=== PATIENT | male | born 1990 | race African-American/Black ===

== ENCOUNTER 2016-03-05 13:53 | Emergency (ER) | payer OTHER ==
--- NOTE | 2016-03-05 15:49 | REP ---
Clinical: Right testicular pain and swelling. Technique: Real time lovett scale and color Doppler evaluation using linear high frequency transducer. Findings: The bilateral testicles demonstrate few scattered punctate calcifications and are otherwise normal in contour, size, echogenicity, and vascularity. There is no evidence for testicular mass lesion, fracture / inflammatory process, or torsion. The epididymides are relatively normal demonstrating 4.5 mm right epididymal head cyst and 4.4 mm and 3.5 mm left epididymal cysts. No significant hydroceles are identified. Mild left-sided varicoceles are suggested measuring up to approximately 2.8 mm maximal diameter. Right testicle measures 4.9 x 2.1 x 3.0 cm. Left testicle measures 4.9 x 2.3 x 3.2 cm. Impression: Few scattered testicular calcifications along with small bilateral epididymal head cysts and minimal left varicoceles. No evidence for torsion, mass lesion or acute infectious/inflammatory process. Signed by Abdifatah Painter MD 03/05/2016 03:41 P
[2016-03-05] MEDS ORDERED: valACYclovir HCL 500 MG TAB As Ordered ONE (16:05)
--- NOTE | 2016-03-05 16:13 | EDDOCDS ---
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 tender to touch. denies penile discharge. looks like rash on outside of testicle. Adult Sepsis Screening: The patient does not have new or worsening altered mentation. Patient's respiratory rate is less than 22. Systolic blood pressure is greater than 100. Patient has a qSOFA score of 0- Negative Sepsis Screen. Suicide/Homicide risk assessment- the patient denies having any suicidal and/or homicidal ideations and does not present with any other emotional, behavioral or mental health complaints. Status: The patient is an active duty food service sales representatives. Transition of care: patient was not received from another setting of care. 14:01 Acuity: JUAQUIN Level 4 bcj 14:01 Method Of Arrival: Walkin/Carried/Asstd bcj Triage Assessment: 14:04 General: Appears in no apparent distress, comfortable, Behavior is cooperative. Pain: bcj Location: pelvis Pain currently is 6 out of 10 on a pain scale. HIV screening NA for this visit Offered previously. Historical: - Allergies: no known allergies; - Home Meds: 1. none - PMHx: none; - PSHx: Appendectomy; PRK Eye Surgery; scope left knee; - Social history: Smoking status: Patient states was never smoker of tobacco. No barriers to communication noted, The patient speaks fluent Pashto, Speaks appropriately for age. - Family history: Not pertinent. - : The pt / caregiver states he / she is not on anticoagulants. Home medication list is obtained from the patient. - Exposure Risk Screening:: None identified. Screenin:10 Screening information is obtained from the patient. Fall risk: No risks identified. mlb1 Assistance ADL's: requires no assistance with activities of daily living. Abuse/DV Screen: The patient / caregiver reports he/she is: not in a situation that causes fear, pain or injury. Nutritional screening: No deficits noted. Advance Directives: Currently, there is no health care proxy. home support is adequate. Assessment: 16:10 General: Appears in no apparent distress, comfortable, Behavior is appropriate for age, mlb1 cooperative. Pain: Location: pelvis Pain currently is 6 out of 10 on a pain scale. Respiratory: No deficits noted. Vital Signs: 13:56 BP 163 / 80; Pulse 79; Resp 18; Temp 98.9; Pulse Ox 100% ; Weight 98.88 kg; Height 5 elp ft. 11 in. (180.34 cm); Pain 6/10; 16:06 BP 141 / 80 RA Sitting (auto/reg); Pulse 70; Resp 18; Temp 98.3(O); Pulse Ox 97% on rs6 R/A; Pain 0/10; 13:56 Body Mass Index 30.40 (98.88 kg, 180.34 cm) elp 16:06 pain is 6/10 with movement. Pain is 0/10 while sitting rs6 Vitals: 13:56 Log In Time: March 05, 2016 at 13:54. el ED Course: 13:55 Patient visited by Danica Reed PCA. elp 13:55 Patient moved to Waiting elp 13:56 [facility], John German is Private Physician. elp 13:56 Patient visited by Danica Reed PCA. elp 13:56 Patient moved to Pre RCE elp 14:03 Triage Initiated bcj 14:05 Patient visited by Jah Smith RN. bc 15:02 Patient moved to Ultrasound hgl 15:21 [facility] jk8 15:21 Cecelia Charles MD is Attending Physician. jk8 15:21 Patient moved to Triage 3 mlb1 15:22 Patient moved to TR7 mlb1 15:23 Patient moved to Pre RCE rs6 15:30 Patient moved to Triage 2 rs6 15:33 [facility]oto [facility] jk8 15:33 Cecelia Charles MD is Attending Physician. jk8 15:33 Patient visited by Guy Soto PA-C. jk8 15:39 Patient moved to PD2 / 27 mlb1 15:54 Scrotal, US Returned. EDMS 15:55 Urine Culture Sent. ls3 15:55 UA Sent. ls3 15:55 Urine collected. Clean catch specimen. Urine specimen sent to lab. ls3 15:56 GC & Chlamydia Amplification Sent. rs6 15:57 [facility]. jk8 16:03 Herpes Simplex Virus by PCR Sent. rs6 16:07 Patient visited by Gloria Cook PCA. rs6 16:11 No IV's were initiated during this patient's visit. No procedures done that require mlb1 assistance. 16:12 Patient visited by Isma Crow RN. mlb1 16:12 The patient / caregiver is instructed regarding the plan of care and ED course. mlb1 Administered Medications: 16:09 Drug: valACYclovir 1000 mg [valacyclovir 500 mg tablet (2 tabs)] Route: PO; mlb1 Order Results: Radiology Order: Scrotal, US Test: Scrotal, US REASON FOR EXAMINATION: Deformity/Swelling; Clinical: Right testicular pain and swelling.; ; Technique: Real time lovett scale and color Doppler evaluation using linear high; frequency transducer.; ; Findings:; The bilateral testicles demonstrate few scattered punctate calcifications and are; otherwise normal in contour, size, echogenicity, and vascularity. There is no; evidence for testicular mass lesion, fracture / inflammatory process, or torsion.; The epididymides are relatively normal demonstrating 4.5 mm right epididymal head; cyst and 4.4 mm and 3.5 mm left epididymal cysts. No significant hydroceles are; identified. Mild left-sided varicoceles are suggested measuring up to; approximately 2.8 mm maximal diameter.; ; Right testicle measures 4.9 x 2.1 x 3.0 cm.; Left testicle measures 4.9 x 2.3 x 3.2 cm.; ; Impression:; Few scattered testicular calcifications along with small bilateral epididymal; head cysts and minimal left varicoceles.; No evidence for torsion, mass lesion or acute infectious/inflammatory process.; ; ; Signed by; Abdifatah Painter MD 03/05/2016 03:41 P; Outcome: 15:58 Discharge ordered by Provider. jk8 16:11 Discharge Assessment: Patient awake, alert and oriented x 3. No cognitive and/or mlb1 functional deficits noted. Patient verbalized understanding of disposition instructions. patient administered narcotics - no. The following High Risk Discharge criteria are identified: None. Discharged to home ambulatory. Condition: good. Discharge instructions given to patient, Instructed on discharge instructions, follow up and referral plans. medication usage, Demonstrated understanding of instructions, medications, Pt was receptive of discharge instructions/ teaching. Prescriptions given X 2. No special radiology studies were completed. Ultrasound Study completed. Property sent home with patient. 16:12 Patient left the ED. mlb1 Signatures: Dispatcher [employer] EDMI Jah Smith, RN RN Isma De La Rosa RN RN mlb1 Ly, Adair davisl Danica Reed, YARD ENGINEER YARD ENGINEER elp Gloria Cook, YARD ENGINEER YARD ENGINEER rs6 Guy Soto PA-C PA-C jk8 Ernestine Ramos, YARD ENGINEER YARD ENGINEER ls3 MTDD
--- NOTE | 2016-03-05 16:13 | EDDOCDS ---
Physician Documentation [facility] Name: Patrick Olvera Age: 25 yrs Sex: Male : 1990 Arrival Date: 03/05/2016 Time: 13:53 Bed PD Private MD: [facility] [place] Disposition: 03/05/16 15:58 Discharged to Home/Self Care. 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 - Condition is Stable. - Prescriptions for Valtrex 1 g Oral Tablet - take 1 tablet by ORAL route every 12 hours for 10 days; 20 tablet. Neosporin (ken- rubio-polym) 3.5mg-400 unit- 5,000 unit/gram Topical Ointment - apply to affected area 1 application by TOPICAL route 2 times per day; 15 gram. - Medication Reconciliation, Local Pharmacy Hours form. - Follow up: [facility] [place]; When: 2 - 3 days; Reason: Recheck today's complaints. Follow up: Emergency Department; When: As needed; Reason: Recheck today's complaints. - Problem is new. - Symptoms have worsened. Historical: - Allergies: no known allergies; - Home Meds: 1. none - PMHx: none; - PSHx: Appendectomy; PRK Eye Surgery; scope left knee; - Social history: Smoking status: Patient states was never smoker of tobacco. No barriers to communication noted, The patient speaks fluent Indian, Speaks appropriately for age. - Family history: Not pertinent. - : The pt / caregiver states he / she is not on anticoagulants. Home medication list is obtained from the patient. - Exposure Risk Screening:: None identified. Vital Signs: 03/05 13:56 BP 163 / 80; Pulse 79; Resp 18; Temp 98.9; Pulse Ox 100% ; Weight 98.88 kg / 217.99 elp lbs; Height 5 ft. 11 in. (180.34 cm); Pain 6/10; 16:06 BP 141 / 80 RA Sitting (auto/reg); Pulse 70; Resp 18; Temp 98.3(O); Pulse Ox 97% on rs6 R/A; Pain 0/10; 13:56 Body Mass Index 30.40 (98.88 kg, 180.34 cm) elp 16:06 pain is 6/10 with movement. Pain is 0/10 while sitting rs6 MDM: 14:49 UA Ordered. EDMS 14:49 GC & Chlamydia Amplification Ordered. EDMS 14:49 Urine Culture Ordered. EDMS 14:50 Scrotal, US Ordered. EDMS 15:37 DUPLEX SCAN LIMITED (DOPPLER) Ordered. EDMS 15:58 Herpes Simplex Virus by PCR Ordered. EDMS 16:01 valACYclovir 1000 mg PO once ordered. jk8 Administered Medications: 16:09 Drug: valACYclovir 1000 mg [valacyclovir 500 mg tablet (2 tabs)] Route: PO; mlb1 Signatures: Dispatcher [employer] EDMS Jah Smith, RN RN Isma De La Rosa RN RN mlb1 Guy Soto PA-C PA-C jk8 MTDD
--- NOTE | 2016-03-07 17:13 | EDDOCDS ---
Physician Documentation [facility] Name: Patrick Olvera Age: 25 yrs Sex: Male : 1990 Arrival Date: 03/05/2016 Time: 13:53 Bed PD Private MD: [facility] [place] Disposition: 03/05/16 15:58 Discharged to Home/Self Care. 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 - Condition is Stable. - Prescriptions for Valtrex 1 g Oral Tablet - take 1 tablet by ORAL route every 12 hours for 10 days; 20 tablet. Neosporin (ken- rubio-polym) 3.5mg-400 unit- 5,000 unit/gram Topical Ointment - apply to affected area 1 application by TOPICAL route 2 times per day; 15 gram. - Medication Reconciliation, Local Pharmacy Hours form. - Follow up: [facility] [place]; When: 2 - 3 days; Reason: Recheck today's complaints. Follow up: Emergency Department; When: As needed; Reason: Recheck today's complaints. - Problem is new. - Symptoms have worsened. Historical: - Allergies: no known allergies; - Home Meds: 1. none - PMHx: none; - PSHx: Appendectomy; PRK Eye Surgery; scope left knee; - Social history: Smoking status: Patient states was never smoker of tobacco. No barriers to communication noted, The patient speaks fluent Nicaraguan, Speaks appropriately for age. - Family history: Not pertinent. - : The pt / caregiver states he / she is not on anticoagulants. Home medication list is obtained from the patient. - Exposure Risk Screening:: None identified. Vital Signs: 03/05 13:56 BP 163 / 80; Pulse 79; Resp 18; Temp 98.9; Pulse Ox 100% ; Weight 98.88 kg / 217.99 elp lbs; Height 5 ft. 11 in. (180.34 cm); Pain 6/10; 16:06 BP 141 / 80 RA Sitting (auto/reg); Pulse 70; Resp 18; Temp 98.3(O); Pulse Ox 97% on rs6 R/A; Pain 0/10; 13:56 Body Mass Index 30.40 (98.88 kg, 180.34 cm) elp 16:06 pain is 6/10 with movement. Pain is 0/10 while sitting rs6 MDM: 14:49 UA Ordered. EDMS 14:49 GC & Chlamydia Amplification Ordered. EDMS 14:49 Urine Culture Ordered. EDMS 14:50 Scrotal, US Ordered. EDMS 15:37 DUPLEX SCAN LIMITED (DOPPLER) Ordered. EDMS 15:58 Herpes Simplex Virus by PCR Ordered. EDMS 16:01 valACYclovir 1000 mg PO once ordered. jk8 03/06 08:48 T-Sheet-- Draft Copy was scanned into [employer] and attached to record. [facility] Administered Medications: 03/05 16:09 Drug: valACYclovir 1000 mg [valacyclovir 500 mg tablet (2 tabs)] Route: PO; mlb1 Signatures: Dispatcher [employer] Jah Cruz RN RN Isma De La Rosa RN RN mlb1 Guy Soto, ALVINA PALeighton jkCecelia Paul The chart was reviewed and I authenticate all verbal orders and agree with the evaluation and treatment provided.Attachments: 03/06 08:48 T-Sheet-- Draft Copy [facility] Chart Complete MTDD
--- NOTE | 2016-03-07 17:13 | EDDOCDS ---
Physician Documentation [facility] Name: Patrick Olvear Age: 25 yrs Sex: Male : 1990 Arrival Date: 03/05/2016 Time: 13:53 Bed PD Private MD: [facility] [place] Disposition: 03/05/16 15:58 Discharged to Home/Self Care. 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 - Condition is Stable. - Prescriptions for Valtrex 1 g Oral Tablet - take 1 tablet by ORAL route every 12 hours for 10 days; 20 tablet. Neosporin (ken- rubio-polym) 3.5mg-400 unit- 5,000 unit/gram Topical Ointment - apply to affected area 1 application by TOPICAL route 2 times per day; 15 gram. - Medication Reconciliation, Local Pharmacy Hours form. - Follow up: [facility] [place]; When: 2 - 3 days; Reason: Recheck today's complaints. Follow up: Emergency Department; When: As needed; Reason: Recheck today's complaints. - Problem is new. - Symptoms have worsened. Historical: - Allergies: no known allergies; - Home Meds: 1. none - PMHx: none; - PSHx: Appendectomy; PRK Eye Surgery; scope left knee; - Social history: Smoking status: Patient states was never smoker of tobacco. No barriers to communication noted, The patient speaks fluent Hungarian, Speaks appropriately for age. - Family history: Not pertinent. - : The pt / caregiver states he / she is not on anticoagulants. Home medication list is obtained from the patient. - Exposure Risk Screening:: None identified. Vital Signs: 03/05 13:56 BP 163 / 80; Pulse 79; Resp 18; Temp 98.9; Pulse Ox 100% ; Weight 98.88 kg / 217.99 elp lbs; Height 5 ft. 11 in. (180.34 cm); Pain 6/10; 16:06 BP 141 / 80 RA Sitting (auto/reg); Pulse 70; Resp 18; Temp 98.3(O); Pulse Ox 97% on rs6 R/A; Pain 0/10; 13:56 Body Mass Index 30.40 (98.88 kg, 180.34 cm) elp 16:06 pain is 6/10 with movement. Pain is 0/10 while sitting rs6 MDM: 14:49 UA Ordered. EDMS 14:49 GC & Chlamydia Amplification Ordered. EDMS 14:49 Urine Culture Ordered. EDMS 14:50 Scrotal, US Ordered. EDMS 15:37 DUPLEX SCAN LIMITED (DOPPLER) Ordered. EDMS 15:58 Herpes Simplex Virus by PCR Ordered. EDMS 16:01 valACYclovir 1000 mg PO once ordered. jk8 03/06 08:48 T-Sheet-- Draft Copy was scanned into [employer] and attached to record. [facility] Administered Medications: 03/05 16:09 Drug: valACYclovir 1000 mg [valacyclovir 500 mg tablet (2 tabs)] Route: PO; mlb1 Signatures: Dispatcher [employer] Jah Cruz RN RN Isma De La Rosa RN RN mlb1 Guy Soto, ALVINA PALeighton jkCecelia Paul The chart was reviewed and I authenticate all verbal orders and agree with the evaluation and treatment provided.Attachments: 03/06 08:48 T-Sheet-- Draft Copy [facility] Chart Complete MTDD
--- NOTE | 2016-03-07 17:13 | EDDOCDS ---
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 tender to touch. denies penile discharge. looks like rash on outside of testicle. Adult Sepsis Screening: The patient does not have new or worsening altered mentation. Patient's respiratory rate is less than 22. Systolic blood pressure is greater than 100. Patient has a qSOFA score of 0- Negative Sepsis Screen. Suicide/Homicide risk assessment- the patient denies having any suicidal and/or homicidal ideations and does not present with any other emotional, behavioral or mental health complaints. Status: The patient is an active duty cnc service technician. Transition of care: patient was not received from another setting of care. 14:01 Acuity: JUAQUIN Level 4 bcj 14:01 Method Of Arrival: Walkin/Carried/Asstd bcj Triage Assessment: 14:04 General: Appears in no apparent distress, comfortable, Behavior is cooperative. Pain: bcj Location: pelvis Pain currently is 6 out of 10 on a pain scale. HIV screening NA for this visit Offered previously. Historical: - Allergies: no known allergies; - Home Meds: 1. none - PMHx: none; - PSHx: Appendectomy; PRK Eye Surgery; scope left knee; - Social history: Smoking status: Patient states was never smoker of tobacco. No barriers to communication noted, The patient speaks fluent Hebrew, Speaks appropriately for age. - Family history: Not pertinent. - : The pt / caregiver states he / she is not on anticoagulants. Home medication list is obtained from the patient. - Exposure Risk Screening:: None identified. Screenin:10 Screening information is obtained from the patient. Fall risk: No risks identified. mlb1 Assistance ADL's: requires no assistance with activities of daily living. Abuse/DV Screen: The patient / caregiver reports he/she is: not in a situation that causes fear, pain or injury. Nutritional screening: No deficits noted. Advance Directives: Currently, there is no health care proxy. home support is adequate. Assessment: 16:10 General: Appears in no apparent distress, comfortable, Behavior is appropriate for age, mlb1 cooperative. Pain: Location: pelvis Pain currently is 6 out of 10 on a pain scale. Respiratory: No deficits noted. Vital Signs: 13:56 BP 163 / 80; Pulse 79; Resp 18; Temp 98.9; Pulse Ox 100% ; Weight 98.88 kg; Height 5 elp ft. 11 in. (180.34 cm); Pain 6/10; 16:06 BP 141 / 80 RA Sitting (auto/reg); Pulse 70; Resp 18; Temp 98.3(O); Pulse Ox 97% on rs6 R/A; Pain 0/10; 13:56 Body Mass Index 30.40 (98.88 kg, 180.34 cm) elp 16:06 pain is 6/10 with movement. Pain is 0/10 while sitting rs6 Vitals: 13:56 Log In Time: March 05, 2016 at 13:54. el ED Course: 13:55 Patient visited by Danica Reed PCA. elp 13:55 Patient moved to Waiting elp 13:56 [facility], John German is Private Physician. elp 13:56 Patient visited by Danica Reed PCA. elp 13:56 Patient moved to Pre RCE elp 14:03 Triage Initiated bcj 14:05 Patient visited by Jah Smith RN. bc 15:02 Patient moved to Ultrasound hgl 15:21 Guy Soto [facility] jk8 15:21 Cecelia Charles MD is Attending Physician. jk8 15:21 Patient moved to Triage 3 mlb1 15:22 Patient moved to TR7 mlb1 15:23 Patient moved to Pre RCE rs6 15:30 Patient moved to Triage 2 rs6 15:33 Guy Soto [facility] jk8 15:33 Cecelia Charles MD is Attending Physician. jk8 15:33 Patient visited by Guy Soto PA-C. jk8 15:39 Patient moved to PD2 / 27 mlb1 15:54 Scrotal, US Returned. EDMS 15:55 Urine Culture Sent. ls3 15:55 UA Sent. ls3 15:55 Urine collected. Clean catch specimen. Urine specimen sent to lab. ls3 15:56 GC & Chlamydia Amplification Sent. rs6 15:57 [facility]. jk8 16:03 Herpes Simplex Virus by PCR Sent. rs6 16:07 Patient visited by Gloria Cook PCA. rs6 16:11 No IV's were initiated during this patient's visit. No procedures done that require mlb1 assistance. 16:12 Patient visited by Isma Crow RN. mlb1 16:12 The patient / caregiver is instructed regarding the plan of care and ED course. mlb1 03/06 08:48 T-Sheet-- Draft Copy was scanned into [facility] and attached to record. [facility] Administered Medications: 03/05 16:09 Drug: valACYclovir 1000 mg [valacyclovir 500 mg tablet (2 tabs)] Route: PO; mlb1 Order Results: Lab Order: UA; SPEC'M 03/05/16 15:43 Test: APPEARANCE, URINE; Value: HAZY; Range: CLEAR; Status: F Test: COLOR, URINE; Value: YELLOW; Range: YELLOW; Status: F Test: PH,URINE; Value: 5.0; Range: 5.0-9.0; Units: UNITS; Status: F Test: SPECIFIC GRAVITY URINE AUTO; Value: 1.025; Range: 1.002-1.035; Status: F Test: PROTEIN, URINE AUTO; Value: NEGATIVE; Range: NEGATIVE; Units: mg/dL; Status: F Test: GLUCOSE, URINE (UA) AUTO; Value: NEGATIVE; Range: NEGATIVE; Units: mg/dL; Status: F Test: KETONE, URINE AUTO; Value: NEGATIVE; Range: NEGATIVE; Units: mg/dL; Status: F Test: UROBILINOGEN, URINE AUTO; Value: 2.0; Range: 0.0-2.0; Abnormal: Above high normal; Units: mg/dL; Status: F Test: BILIRUBIN, URINE AUTO; Value: NEGATIVE; Range: NEGATIVE; Status: F Test: NITRITE, URINE AUTO; Value: NEGATIVE; Range: NEGATIVE; Status: F Test: LEUKOCYTE ESTERASE, URINE AUTO; Value: TRACE; Range: NEGATIVE; Abnormal: Above high normal; Status: F Test: BLOOD, URINE BLOOD; Value: NEGATIVE; Range: NEGATIVE; Status: F Test: WBC, URINE AUTO; Value: 8; Range: 0-3; Abnormal: Above high normal; Units: /HPF; Status: F Test: RBC, URINE AUTO; Value: 1; Range: 0-3; Units: /HPF; Status: F Test: BACTERIA, URINE AUTO; Value: 1+; Range: NEGATIVE; Abnormal: Above high normal; Status: F Test: SQUAMOUS EPITHELIAL CELL UR AU; Value: 2; Range: 0-6; Units: /HPF; Status: F Test: MUCUS, URINE; Value: SMALL; Range: NEGATIVE; Status: F Test: HYALINE CAST, URINE AUTO; Value: 0; Range: 0-1; Units: /LPF; Status: F Lab Order: Urine Culture; SPEC'M 03/05/16 15:43 Test: URINE CULTURE; Value: URINE CULTURE RESULT NO GROWTH; Status: F Lab Order: GC & Chlamydia Amplification; SPEC'M 03/05/16 15:43 Test: CHLAMYDIA DNA AMPLIFICATION; Value: NEGATIVE; Range: NEGATIVE; Status: F Test: GC DNA AMPLIFICATION; Value: NEGATIVE; Range: NEGATIVE; Status: F Radiology Order: Scrotal, US Test: Scrotal, US REASON FOR EXAMINATION: Deformity/Swelling; Clinical: Right testicular pain and swelling.; ; Technique: Real time lovett scale and color Doppler evaluation using linear high; frequency transducer.; ; Findings:; The bilateral testicles demonstrate few scattered punctate calcifications and are; otherwise normal in contour, size, echogenicity, and vascularity. There is no; evidence for testicular mass lesion, fracture / inflammatory process, or torsion.; The epididymides are relatively normal demonstrating 4.5 mm right epididymal head; cyst and 4.4 mm and 3.5 mm left epididymal cysts. No significant hydroceles are; identified. Mild left-sided varicoceles are suggested measuring up to; approximately 2.8 mm maximal diameter.; ; Right testicle measures 4.9 x 2.1 x 3.0 cm.; Left testicle measures 4.9 x 2.3 x 3.2 cm.; ; Impression:; Few scattered testicular calcifications along with small bilateral epididymal; head cysts and minimal left varicoceles.; No evidence for torsion, mass lesion or acute infectious/inflammatory process.; ; ; Signed by; Abdifatah Painter MD 03/05/2016 03:41 P; Outcome: 15:58 Discharge ordered by Provider. jk8 16:11 Discharge Assessment: Patient awake, alert and oriented x 3. No cognitive and/or mlb1 functional deficits noted. Patient verbalized understanding of disposition instructions. patient administered narcotics - no. The following High Risk Discharge criteria are identified: None. Discharged to home ambulatory. Condition: good. Discharge instructions given to patient, Instructed on discharge instructions, follow up and referral plans. medication usage, Demonstrated understanding of instructions, medications, Pt was receptive of discharge instructions/ teaching. Prescriptions given X 2. No special radiology studies were completed. Ultrasound Study completed. Property sent home with patient. 16:12 Patient left the ED. mlb1 Signatures: Dispatcher [employer] EDMS Jah Smith, RN RN Isma De La Rosa RN RN mlb1 Adair Nayak Erin, FOUR CORNER STAYER MACHINE OPERATOR FOUR CORNER STAYER MACHINE OPERATOR elp Gloria Cook, FOUR CORNER STAYER MACHINE OPERATOR FOUR CORNER STAYER MACHINE OPERATOR rs6 Guy Soto, PA-C PA-C jk8 Ernestine Ramos, FOUR CORNER STAYER MACHINE OPERATOR FOUR CORNER STAYER MACHINE OPERATOR ls3 Cecelia Garza Chart Complete JASON
== END 2016-03-05 16:12 | disposition home or self-care (01) ==
LOC: M ED 13:53
DX: A60.02 Herpesviral infection of other male genital organs (principal); N50.3 Cyst of epididymis; Z90.89 Acquired absence of other organs